=== PATIENT | female | born 1955 | race Caucasian/White ===

== ENCOUNTER 2020-07-05 09:11 | Day surgery (SDC) | payer MEDICARE, OTHER ==
[2020-07-03 09:22] VITALS: BMI 19.1
[~2020-07-05 09:11] MED LIST: ALPRAZolam 0.25 MG TAB PO PRN; ALPRAZolam 0.5 MG TAB PO PRN; ASPIRIN 325 MG TAB PO STA; ATORVASTATIN 80 MG TAB PO STA; HEPARIN SODIUM,PORCINE 10,000 UNIT in SODIUM CHLORIDE 0.9% 1,000 ML IRRIGATION PRN; HEPARIN SODIUM,PORCINE 2,500 UNIT in SODIUM CHLORIDE 0.9% 250 ML IRRIGATION PRN; NITROGLYCERIN SL TABS 0.4 MG TAB SUBLINGUAL PRN; SODIUM CHLORIDE 0.9% 1,000 ML in EMPTY BAG 1 BAG IV ONE
[2020-07-05] MEDS ORDERED: SODIUM CHLORIDE 0.9% 1,000 ML IV ONE (09:34)
[2020-07-05 09:50] VITALS: RESP 16; TEMP 98
[2020-07-05 10:42] LABS: Basophils # (A) 0.1 k/uL (0-0.2); Basophils % (A) 1 %; Eosinophils # (A) 0.3 k/uL (0-0.7); Eosinophils % (A) 2 %; HCT 45.9 % (34.0-46.0); HGB 15.9 gm/dL (11.4-16.0); Lymphocytes # (A) 1.8 k/uL (1.0-4.8); Lymphocytes % (A) 14 %; MCH 35.3 pg (25.0-35.0); MCHC 34.7 g/dL (31.0-37.0); MCV 101.6 fL (80.0-100.0); Mean Platelet Volume 8.1; Monocytes # (A) 0.8 k/uL (0-1.0); Monocytes % (A) 6 %; Neutrophils # (A) 10.4 k/uL (1.3-7.7); Neutrophils % (A) 77 %; Platelet Count 293 k/uL (150-450); RBC 4.52 m/uL (3.80-5.40); RDW 12.1 % (11.5-15.5); WBC 13.5 k/uL (3.8-10.6)
[2020-07-05 10:46] LABS: African American GFR (CKD) >90 (>60 ml/min/1.73 sqM); Anion Gap 11 mmol/L; Blood Urea Nitrogen 13 mg/dL (7-17); Calcium 9.4 mg/dL (8.4-10.2); Carbon Dioxide 22 mmol/L (22-30); Chloride 106 mmol/L (98-107); Glucose 104 mg/dL (74-99); Non-African American GFR(CKD) >90 (>60 ml/min/1.73 sqM); Sodium 139 mmol/L (137-145)
[2020-07-05 10:48] LABS: Potassium 4.7 mmol/L (3.5-5.1)
[2020-07-05] MEDS ORDERED: LIDOCAINE 1% INJ 10MG/ML (20 ML MDV) SQ ONE (11:25)
[2020-07-05] MEDS ORDERED: MIDAZOLAM 2 MG/2 ML VIAL IV ONE (11:25)
[2020-07-05] MEDS ORDERED: IOPAMIDOL-370 100ML BTL INJ ONE (11:41)
[2020-07-05] MEDS ORDERED: SODIUM CHLORIDE 0.9% 1,000 ML IV SCH (12:15)
--- NOTE | 2020-07-05 15:34 | CC ---
CARDIAC CATHETERIZATION REPORT DATE OF SERVICE: 07/05/2020. PROCEDURE: Left heart catheterization and coronary angiography and left ventriculography. PERFORMED BY: Dr. Marycruz Macias. Moderate conscious sedation time was 20 minutes. CLINICAL INFORMATION: Mrs. Maricel Keenan is a 64-year-old lady with a history of aortocoronary bypass surgery following a large inferior AL in 1996 with a PHILLIPS to LAD and vein graft to the RCA. This surgery was performed in [place]. She smokes and also has hypertension and hyperlipidemia. She has been having symptoms of exertional shortness of breath, chest discomfort and had a positive stress test with evidence of old AL with moderate area of partial reversibility. She was advised cardiac cath after due discussion. PROCEDURE NOTE: Under local anesthesia and strict aseptic precautions, a 6-[place] Island[place] introducer was placed in the right femoral artery. Using a standard JL4 catheter, I performed selective coronary angiography of the left system. Using a Tito catheter, I performed selective coronary angiography of the [place] RCA, vein graft to the RCA as well as the PHILLIPS injection. A pigtail catheter was used to check LV pressures and LV-gram was performed in 30-degree BRADLEY projection. Patient tolerated procedure well. The sheath was taken out and Angio-Seal device used to secure hemostasis and she was sent to the room in a stable condition. CARDIAC CATHETERIZATION FINDINGS: Left ventricular end-diastolic pressure was 9 mmHg without any gradient across aortic valve. CORONARY ANGIOGRAPHY FINDINGS: RIGHT CORONARY ARTERY: This is technically a dominant vessel, totally occluded without much antegrade flow. LEFT MAIN CORONARY ARTERY: Short patent vessel that bifurcates immediately into LAD and circumflex. Left main has no significant disease. LEFT ANTERIOR DESCENDING CORONARY ARTERY: This vessel is totally occluded with the proximal portion seen as a stump. LEFT POSTERIOR CIRCUMFLEX CORONARY ARTERY: Nondominant vessel gives off a first obtuse marginal and continues as a second obtuse marginal, has minor irregularities of 30% to 40%, no significant disease. SAPHENOUS VEIN GRAFT TO THE RCA: This graft is widely patent in its origin course insertion site and opacified RCA as well as the 2 distal branches of RCA are free of significant disease. LEFT INTERNAL MAMMARY ARTERY GRAFT TO LAD: This graft is widely patent, has no significant disease, opacifies the LAD as well as the diagonal branches that supply a sizable amount of myocardium. LEFT VENTRICULOGRAM: This was performed in 30-degree BRADLEY projection revealed left ventricle which is at upper limits of normal with akinesia of the inferobasal as well as mid inferior wall and ejection fraction of about 42%. There is no significant mitral regurgitation. FINAL IMPRESSION: This patient has ejection fraction of 42% with inferobasal akinesia and no mitral regurgitation, normal filling pressures, no gradient across aortic valve. Right- dominant system with total occlusion of RCA and LAD. The PHILLIPS to LAD is patent. Vein graft to the RCA is patent. Circumflex had 30% to 40% disease. RECOMMENDATIONS: Findings were discussed with the patient. I am going to recommend compliance with medications, medical therapy and risk factor modification. No intervention is necessary. The patient will be discharged later today and I will see her in the office in 48 hours. MMODL / IJN: [id number] /
[2020-07-05 16:30] VITALS: BP 128/60; PULSE 58
== END 2020-07-05 17:53 | disposition home or self-care (01) ==
LOC: CATHCVL 09:11
PROVIDERS: ATTEND Internal Medicine Interventional Cardiology
DX: I25.110 Atherosclerotic heart disease of native coronary artery with unstable angina pectoris (principal); I25.82 Chronic total occlusion of coronary artery; I10 Essential (primary) hypertension; E78.5 Hyperlipidemia, unspecified; E78.00 Pure hypercholesterolemia, unspecified; F17.200 Nicotine dependence, unspecified, uncomplicated; Z95.1 Presence of aortocoronary bypass graft; I25.2 Old myocardial infarction; Z79.82 Long term (current) use of aspirin; Z79.899 Other long term (current) drug therapy
CPT/HCPCS: 93459; 80048; 85025; C1760; C1894; C1769 ×2; J2250; J2001; Q9967

== ENCOUNTER 2020-10-21 15:59 | Inpatient (IN) | payer MEDICARE, OTHER ==
[2020-10-21] MEDS ORDERED: AMIODARONE 360 MG in DEXTROSE 5% IN WATER 200 ML IV ONE ×2 (16:12)
--- NOTE | 2020-10-21 16:31 | ED ---
Arrhythmia/Palpitations HPI - General Chief Complaint: Arrhythmia/Palpitations Stated Complaint: Fall, Chest Pain Time Seen by Provider: 10/21/20 16:12 Source: patient, EMS Mode of arrival: EMS - History of Present Illness Initial Comments: Maricel is a 65-year-old female with a history of coronary artery disease status post CABG with a cardiac catheterization earlier this year in which she had no intervention. The patient presents the ER today as a transfer [facility] outside hosp [facility]. Patient sought care at outside hospital for evaluation of pressure in her chest and palpitations. She was found to be tachycardic with a rate in the 140s believed to be V. tach and was treated with amiodarone. Her workup with outpatient Hospital also revealed significant hypomagnesemia and her magnesium was repleted. Patient was transferred to our hospital for further follow-up with cardiology. Upon arrival patient reports she is feeling well but did have a repeat episode of tachycardia in which she experienced pressure in her chest and palpitations. - Related Data Home Medications Medication Instructions Recorded Confirmed Aspirin 81 mg PO BID 07/03/20 07/05/20 Carvedilol [Coreg] 6.25 mg PO BID 07/03/20 07/05/20 Losartan Potassium [Cozaar] 50 mg PO HS 07/03/20 07/05/20 Multivitamins, Thera [Multivitamin 1 tab PO DAILY 07/03/20 07/05/20 (formulary)] Simvastatin [Zocor] 40 mg PO HS 07/03/20 07/05/20 Allergies Allergy/AdvReac Type Severity Reaction Status Date / Time No Known Allergies Allergy Verified 10/21/20 16:10 Review of Systems ROS Statement: Those systems with pertinent positive or pertinent negative responses have been documented in the HPI. ROS Other: All systems not noted in ROS Statement are negative. Past Medical History Past Medical History: Coronary Artery Disease (CAD), Myocardial Infarction (LA) Additional Past Medical History / Comment(s): EF 43%, hx kidney stones Last Myocardial Infarction Date:: 1986 History of Any Multi-Drug Resistant Organisms: None Reported Past Surgical History: Coronary Bypass/CABG, Heart Catheterization Additional Past Surgical History / Comment(s): CABG 1996,kidney stones Past Anesthesia/Blood Transfusion Reactions: No Reported Reaction Additional Past Anesthesia/Blood Transfusion Reaction / Comment(s): no hx blood transfusion Past Psychological History: No Psychological Hx Reported Smoking Status: Current every day smoker Past Alcohol Use History: Daily Past Drug Use History: None Reported - Past Family History Mother Family Medical History: No Reported History General Exam - General Exam Comments Initial Comments: Physical Exam GENERAL: Patient is well-developed Underweight Patient is nontoxic and well-hydrated and is in no distress. HENT: Normocephalic, Atraumatic. EYES: PERRL, EOMI PULMONARY: Unlabored respirations. No audible rales rhonchi or wheezing was noted. CARDIOVASCULAR: Bradycardic, regular Sternotomy scar ABDOMEN: Soft and nontender with normal bowel sounds. SKIN: Skin is clear with no lesions or rashes and otherwise unremarkable. : Deferred NEUROLOGIC: Patient is alert and oriented x3. Moving all extremities spontaneously MUSCULOSKELETAL: Normal extremities with adequate strength and full range of motion. No lower extremity swelling or edema. No calf tenderness. PSYCHIATRIC: Normal psychiatric evaluation. Course Vital Signs 10/21/20 16:03 Temperature 98.6 F Pulse Rate 58 L Respiratory 16 Rate Blood Pressure 126/72 O2 Sat by Pulse 96 Oximetry EKG Findings - EKG Comments: EKG Findings:: EKG was obtained at 1619, EKG with a rate of 53, rhythm is sinus bradycardia, normal axis, normal intervals, RI 124, QRS 100, QTC 437. There are no acute ST elevations, ST depressions are noted in V2 through V5 however this EKG was obtained within a minute of patient having resolution of tachycardic episode I suspect that ST depression in the due to demand ischemia. Medical Decision Making - Medical Decision Making Patient was seen and evaluated upon arrival to the emergency department, patient was in sinus bradycardia no acute distress Repeat labs were ordered Within 10 minutes of arrival patient had an episode of tachycardia that appeared to be narrow complex tachycardia on the quality assurance monitor body, she was treated with a repeat dose of amiodarone and amiodarone drip was initiated Patient tachycardia resolved after dose of amiodarone The EKG was obtained and is sinus bradycardia with some ST depressions consistent with demand ischemia These results were discussed with cardiology non profit financial controller Dr. Castro who agrees with plan for continued amiodarone and admission to the hospital Care was discussed with Dr. Barone who accepts the admission - Lab Data Result diagrams: 10/21/20 16:32 Lab Results 10/21/20 Range/Units 16:32 WBC 12.1 H (3.8-10.6) k/uL RBC 4.52 (3.80-5.40) m/uL Hgb 15.9 (11.4-16.0) gm/dL Hct 45.6 (34.0-46.0) % MCV 100.9 H (80.0-100.0) fL MCH 35.2 H (25.0-35.0) pg MCHC 34.9 (31.0-37.0) g/dL RDW 12.4 (11.5-15.5) % Plt Count 273 (150-450) k/uL MPV 7.7 Neutrophils % 63 % Lymphocytes % 25 % Monocytes % 7 % Eosinophils % 2 % Basophils % 1 % Neutrophils # 7.6 (1.3-7.7) k/uL Lymphocytes # 3.0 (1.0-4.8) k/uL Monocytes # 0.9 (0-1.0) k/uL Eosinophils # 0.3 (0-0.7) k/uL Basophils # 0.1 (0-0.2) k/uL Disposition Clinical Impression: Tachyarrhythmia, CAD (coronary artery disease) Disposition: ADMITTED IP TO THIS [facility] Condition: Serious Is patient prescribed a controlled substance at d/c from ED?: No Referrals: Adria Wright MD [Primary Care Provider] - 1-2 days
[2020-10-21 16:39] LABS: Basophils # (A) 0.1 k/uL (0-0.2); Basophils % (A) 1 %; Eosinophils # (A) 0.3 k/uL (0-0.7); Eosinophils % (A) 2 %; HCT 45.6 % (34.0-46.0); HGB 15.9 gm/dL (11.4-16.0); Lymphocytes % (A) 25 %; MCH 35.2 pg (25.0-35.0); MCHC 34.9 g/dL (31.0-37.0); MCV 100.9 fL (80.0-100.0); Mean Platelet Volume 7.7; Monocytes # (A) 0.9 k/uL (0-1.0); Monocytes % (A) 7 %; Neutrophils # (A) 7.6 k/uL (1.3-7.7); Neutrophils % (A) 63 %; Platelet Count 273 k/uL (150-450); RBC 4.52 m/uL (3.80-5.40); RDW 12.4 % (11.5-15.5); WBC 12.1 k/uL (3.8-10.6)
[2020-10-21] MEDS ORDERED: NALOXONE 0.4 MG/ML 1 ML VIAL IV PRN (16:41)
[2020-10-21 16:48] LABS: ALT 32 U/L (4-34); AST 49 U/L (14-36); African American GFR (CKD) >90 (>60 ml/min/1.73 sqM); Albumin 4.3 g/dL (3.5-5.0); Alkaline Phosphatase 73 U/L (38-126); Anion Gap 6 mmol/L; Blood Urea Nitrogen 11 mg/dL (7-17); Calcium 9.2 mg/dL (8.4-10.2); Carbon Dioxide 24 mmol/L (22-30); Chloride 108 mmol/L (98-107); Glucose 95 mg/dL (74-99); Magnesium 2.6 mg/dL (1.6-2.3); Non-African American GFR(CKD) >90 (>60 ml/min/1.73 sqM); Sodium 138 mmol/L (137-145); Total Bilirubin 1.5 mg/dL (0.2-1.3); Total Protein 7.4 g/dL (6.3-8.2)
[2020-10-21 16:50] LABS: Potassium 5.2 mmol/L (3.5-5.1)
[2020-10-21 17:08] LABS: INR 0.9 (<1.2); Prothrombin Time 10.1 sec (9.0-12.0)
[2020-10-21 17:15] LABS: Partial Thromboplastin Time 21.3 sec (22.0-30.0)
[2020-10-21] MEDS: DEXTROSE 5% IN WATER 100 ML with AMIODARONE 150 MG IV ONE ×2 (17:27→17:30)
[2020-10-21] MEDS: AMIODARONE 450 MG in DEXTROSE 5% IN WATER 250 ML IV SCH ×2 (22:28)
--- NOTE | 2020-10-21 22:37 | P.HPIM ---
History of Present Illness H&P Date: 10/21/20 Chief Complaint: Palpitations History of presenting complaint: This is a pleasant 65-year-old patient of Dr. Wright. Also follows with dewaterer operator Dr. BUSTER Macias. Patient had a coronary bypass in 1997. Patient will quite some time had been episodes of palpitations some chest pressure. Patient other intubated. Patient subsequently underwent a cardiac catheterization of [facility] Dr. BUSTER Macias. Findings: EF 42%. There was inferobasilar akinesia. Right dominant system with total occlusion of RCA and LAD. PHILLIPS to LAD is patent. Vein graft to RCA is patent. Circumflex had 30-40% disease. Patient has continued to have intermittent chest pressure or palpitations. Patient initially presented to [facility]. There is a question about patient being on V. tach. Was given IV amiodarone. The lesion was low that was in place. Patient had an episode of tachycardia in the ER. Admitted for the same. Patient also fell last week injuring her right ankle. X-rays were done at the [facility]. No fractures reported. Review of systems: GEN.: Tired EYES: None HEENT: None NECK: None RESPIRATORY: None CARDIOVASCULAR: As above GASTROINTESTINAL: None GENITOURINARY: None MUSCULOSKELETAL: None LYMPHATICS: None HEMATOLOGICAL: None PSYCHIATRY: None NEUROLOGICAL: None Past medical history to include: Coronary artery disease with prior bypass, kidney stones, CHF EF 43%, hypertension, hyperlipidemia Social history: Patient smokes a few cigarettes a day. Was up to half a pack a day for many years his age of 18. Patient drinks 2 Vodkas at night. Lives alone. Family history: Reviewed, noncontributory to presentation Physical examination: VITAL SIGNS: 97.9, 59, 18, 120/74, 100% room air GENERAL: BMI 19.5, laying in bed, comfortable. EYES: Pupils equal. Conjunctiva normal. HEENT: External appearance of nose and ears normal, oral cavity grossly normal. NECK: JVD not raised; masses not palpable. HEART: First and second heart sounds are normal; no edema. LUNGS: Respiratory rate normal; clear to auscultation. ABDOMEN: Soft, nontender, liver spleen not palpable, no masses palpable. PSYCH: Alert and oriented x3; mood and affect normal. NEUROLOGICAL: Cranial nerves grossly intact; no facial asymmetry, power and sensation grossly intact. MUSCULAR skeletal: Slight swelling around the right ankle. Fit fair range of motion LYMPHATICS: No lymph nodes palpable in the axilla and neck INVESTIGATIONS, reviewed in the clinical context: WBC 12.1 hemoglobin 15.9 platelets 273 potassium 5.2 creatinine 0.50 magnesium 2.6 TSH 1.9 Coronavirus [PCR] not detected EKG tracing personally reviewed by me-normal sinus rhythm without ST-T segment changes Assessment and plan: -Unstable angina in a patient with known coronary artery disease. She did have a cardiac catheterization in July of this year. She found to be patent. There was about 30-40% disease in the circumflex. Continue with aspirin, Coreg, Cozaar. Add Imdur. -Essential hypertension On Coreg and Cozaar -Hypercholesterolemia Continue Zocor -Arrhythmia reported. Exact type unknown. Questionable V. tach. Patient is on IV amiodarone. Consult cardiology. -Chronic nicotine dependence, cigarette smoker Nicotine patch Patient put on telemetry. Home medications resumed. Imdur is being added. Cardiology consulted. Care was discussed with the patient. Past Medical History Past Medical History: Coronary Artery Disease (CAD), Myocardial Infarction (CT) Additional Past Medical History / Comment(s): EF 43%, hx kidney stones Last Myocardial Infarction Date:: 1986 History of Any Multi-Drug Resistant Organisms: None Reported Past Surgical History: Coronary Bypass/CABG, Heart Catheterization Additional Past Surgical History / Comment(s): CABG 1996,kidney stones Past Anesthesia/Blood Transfusion Reactions: No Reported Reaction Additional Past Anesthesia/Blood Transfusion Reaction / Comment(s): no hx blood transfusion Past Psychological History: No Psychological Hx Reported Smoking Status: Light tobacco smoker Past Alcohol Use History: Daily Additional Past Alcohol Use History / Comment(s): started smoking at age 18 <1ppd Pt smokes 1-2 cigerettes a a day,drinks 2 vodka per day Past Drug Use History: None Reported - Past Family History Mother Family Medical History: No Reported History Medications and Allergies Home Medications Medication Instructions Recorded Confirmed Type Aspirin 81 mg PO BID 07/03/20 10/21/20 History Carvedilol [Coreg] 6.25 mg PO BID 07/03/20 10/21/20 History Losartan Potassium [Cozaar] 50 mg PO HS 07/03/20 10/21/20 History Simvastatin [Zocor] 40 mg PO HS 07/03/20 10/21/20 History Allergies Allergy/AdvReac Type Severity Reaction Status Date / Time No Known Allergies Allergy Verified 10/21/20 17:46 Physical Exam Vitals: Vital Signs Temp Pulse Pulse Resp BP BP Pulse Ox 10/21/20 21:49 97.9 F 59 L 18 120/74 100 10/21/20 20:54 52 L 16 128/76 95 10/21/20 17:31 64 18 128/76 98 10/21/20 16:03 98.6 F 58 L 16 126/72 96 Intake and Output 10/21/20 10/21/20 10/21/20 06:59 14:59 22:59 Intake Total 100 Balance 100 Intake: Oral 100 Other: Weight 49.895 kg Results CBC & Chem 7: 10/21/20 16:32 10/21/20 16:32 Labs: Abnormal Lab Results - Last 24 Hours (Table) 10/21/20 10/21/20 10/21/20 Range/Units 16:32 16:32 16:32 WBC 12.1 H (3.8-10.6) k/uL MCV 100.9 H (80.0-100.0) fL MCH 35.2 H (25.0-35.0) pg APTT 21.3 L (22.0-30.0) sec Potassium 5.2 H (3.5-5.1) mmol/L Chloride 108 H (98-107) mmol/L Creatinine 0.50 L (0.52-1.04) mg/dL Magnesium 2.6 H (1.6-2.3) mg/dL Total Bilirubin 1.5 H (0.2-1.3) mg/dL AST 49 H (14-36) U/L Thrombosis Risk Factor Assmnt - Choose All That Apply Any of the Below Risk Factors Present?: No Each Risk Factor Represents 2 Points: Age 61-74 years Other congenital or acquired thrombophilia - If yes, enter type in comment: No Thrombosis Risk Factor Assessment Total Risk Factor Score: 2 Thrombosis Risk Factor Assessment Level: Low Risk
[2020-10-21] MEDS: ASPIRIN 81 MG PO SCH (22:51)
[2020-10-21] MEDS: carvediloL 6.25 MG TAB PO SCH (22:51)
[2020-10-21] MEDS: LOSARTAN 50 MG TAB PO SCH (22:51)
[2020-10-21] MEDS: ATORVASTATIN 20 MG TAB PO SCH (22:51)
[2020-10-22] MEDS: carvediloL 6.25 MG TAB PO SCH ×2 (06:45→17:35)
[2020-10-22] MEDS: ASPIRIN 81 MG PO SCH ×2 (09:24→20:49)
[2020-10-22] MEDS: AMIODARONE 450 MG in DEXTROSE 5% IN WATER 250 ML IV SCH ×2 (12:40)
[2020-10-22] MEDS: AMIODARONE 200 MG TAB PO SCH (17:35)
--- NOTE | 2020-10-22 19:30 | P.CRDCN ---
History of Present Illness History of present illness: HISTORY OF PRESENTING ILLNESS This is a pleasant 65-year-old with past medical history significant for coronary artery disease status post CABG 1997, ischemic heart myopathy with ejection fraction 42%, hypertension, hyperlipidemia, tobacco abuse. She follows in the office with Dr Macias. She admits she has been feeling fairly well however over the last 3-4 days has been noting intermittent episodes of palpitations. She states she will feel her heart racing and feels somewhat lightheaded and usually last for 2-3 minutes. This has been predominantly over last few days. She then however was sitting in the chair talking with her friend when she began to feel palpitations and the next thing she remembers was waking up on the floor. Her friend states she slumped over in the chair and fell down to the ground. She believes she had her head. She then went to [facility]. She apparently was noted to be in ventricular tachycardia and was placed on amiodarone drip. She denies any further symptoms of palpitations since being on amiodarone. She was then transferred to [facility] for further treatment. She denies any chest pain, pressure, shortness breath. She did have recent heart catheterization from June 2020 which showed patent PHILLIPS to LAD, patent SVG to RCA, 100% [place] LAD and RCA stenosis with 30-40% circumflex disease. She also has a ejection of 42% by ventriculogram. EKG performed yesterday shows sinus bradycardia, normal axis, T-wave inversions in 2, 3, aVF. REVIEW OF SYSTEMS At the time of my exam: CONSTITUTIONAL: Denies fever or chills. CARDIOVASCULAR: Denies chest pain, shortness of breath, orthopnea, PND or palpitations. RESPIRATORY: Denies cough. GASTROINTESTINAL: Denies abdominal pain, diarrhea, constipation, nausea or vom iting. MUSCULOSKELETAL: Denies myalgias. NEUROLOGIC: Denies numbness, tingling or weakness. ENDOCRINE: Denies fatigue, weight change, polydipsia or polyurina. GENITOURINARY: Denies burning, hematuria or urgency with micturation. HEMATOLOGIC: Denies history of anemia or bleeding. PHYSICAL EXAMINATION Vital signs reviewed. CONSTITUTIONAL: No apparent distress. HEENT: Head is normocephalic. Pupils are equal, round. Sclerae anicteric. Mucous membranes of the mouth are moist. No JVD. No carotid bruit. CHEST EXAMINATION: Lungs are clear to auscultation. No chest wall tenderness is noted on palpation or with deep breathing. HEART EXAMINATION: Regular rate and rhythm. S1, S2 heard. No murmurs, gallops or rub. ABDOMEN: Soft, nontender. Positive bowel sounds. EXTREMITIES: 2+ peripheral pulses, no lower extremity edema and no calf tenderness. NEUROLOGIC EXAMINATION: Patient is awake, alert and oriented x3. ASSESSMENT 1. Syncope, likely related to ventricular tachycardia 2. Ventricular tachycardia noted at [facility], currently on amiodarone drip 3. Ischemic heart myopathy, last ejection fraction 42% 4. Chronic systolic heart failure 5. Tobacco abuse 6. Coronary artery disease status post CABG, patent PHILLIPS to LAD and SVG to RCA by recent heart catheterization 06/28/2020 PLAN Attempt to obtain records of ventricular tachycardia from [facility] however per documentation frequent episodes of ventricular tachycardia. This has been controlled on amiodarone drip. Ventricular tachycardia likely the result of prior scar with ischemic cardiomyopathy however also consideration of ischemia with EKG showing T-wave inversions concerning for ischemia. Patient however denies any angina-type symptoms. Check repeat 2-D echo. Further recommendations pending results of 2-D echo. If syncope related to ventricular tachycardia, patient would likely benefit from AICD for secondary prevention of sudden cardiac . Change to oral amiodarone. Continue beta lai, optimize heart failure regimen as able. Past Medical History Past Medical History: Coronary Artery Disease (CAD), Myocardial Infarction (VT) Additional Past Medical History / Comment(s): EF 43%, hx kidney stones Last Myocardial Infarction Date:: 1986 History of Any Multi-Drug Resistant Organisms: None Reported Past Surgical History: Coronary Bypass/CABG, Heart Catheterization Additional Past Surgical History / Comment(s): CABG 1996,kidney stones Past Anesthesia/Blood Transfusion Reactions: No Reported Reaction Additional Past Anesthesia/Blood Transfusion Reaction / Comment(s): no hx blood transfusion Past Psychological History: No Psychological Hx Reported Smoking Status: Light tobacco smoker Past Alcohol Use History: Daily Additional Past Alcohol Use History / Comment(s): started smoking at age 18 <1ppd Pt smokes 1-2 cigerettes a a day,drinks 2 vodka per day Past Drug Use History: None Reported - Past Family History Mother Family Medical History: No Reported History Medications and Allergies Home Medications Medication Instructions Recorded Confirmed Type Aspirin 81 mg PO BID 07/03/20 10/21/20 History Carvedilol [Coreg] 6.25 mg PO BID 07/03/20 10/21/20 History Losartan Potassium [Cozaar] 50 mg PO HS 07/03/20 10/21/20 History Simvastatin [Zocor] 40 mg PO HS 07/03/20 10/21/20 History Allergies Allergy/AdvReac Type Severity Reaction Status Date / Time No Known Allergies Allergy Verified 10/21/20 17:46 Physical Exam Vitals: Vital Signs Temp Pulse Pulse Resp BP BP Pulse Ox 10/22/20 16:00 53 L 18 103/65 98 10/22/20 12:00 62 18 129/79 98 10/22/20 08:00 98.0 F 53 L 18 90/59 97 10/22/20 04:00 54 L 16 97/59 99 10/22/20 02:00 59 L 18 10/21/20 21:49 97.9 F 59 L 18 120/74 100 10/21/20 20:54 52 L 16 128/76 95 Intake and Output 10/22/20 10/22/20 10/22/20 06:59 14:59 22:59 Intake Total 100 476.671 240 Balance 100 476.671 240 Intake: Intake, IV Titration 236.671 Amount Amiodarone 450 mg In 236.671 Dextrose 5% in Water 250 ml @ 0.5 MG/MIN 16.667 mls/hr IV .Q15H [facility] Rx#: [id number] Oral 100 240 240 Other: # Voids 1 Weight 47 kg Results 10/21/20 16:32 10/21/20 16:32 Current Medications Generic Name Dose Route Start Last Admin Trade Name Freq PRN Reason Stop Dose Admin Amiodarone HCl 400 mg 10/22/20 17:16 10/22/20 17:35 Amiodarone 200 Mg Tab PO 400 mg BID ANTHONY Administration Aspirin 81 mg 10/21/20 22:45 10/22/20 09:24 Aspirin 81 Mg PO 81 mg BID ANTHONY Administration Atorvastatin Calcium 20 mg 10/21/20 22:45 10/21/20 22:51 Atorvastatin 20 Mg Tab PO 20 mg HS [facility] Administration Carvedilol 6.25 mg 10/21/20 22:45 10/22/20 17:35 Carvedilol 6.25 Mg Tab PO 6.25 mg BID-W/MEALS ANTHONY Administration Losartan Potassium 50 mg 10/21/20 22:45 10/21/20 22:51 Losartan 50 Mg Tab PO 50 mg HS ANTHONY Administration Naloxone HCl 0.2 mg 10/21/20 16:41 Naloxone 0.4 Mg/Ml 1 Ml Vial IV Q2M PRN Opioid Reversal Intake and Output 10/22/20 10/22/20 10/22/20 06:59 14:59 22:59 Intake Total 100 476.671 240 Balance 100 476.671 240 Intake: Intake, IV Titration 236.671 Amount Amiodarone 450 mg In 236.671 Dextrose 5% in Water 250 ml @ 0.5 MG/MIN 16.667 mls/hr IV .Q15H ANTHONY Rx#: [id number] Oral 100 240 240 Other: # Voids 1 Weight 47 kg 10/21/20 16:32 10/21/20 16:32
--- NOTE | 2020-10-22 19:31 | P.PN ---
Progress Note - Text Progress Note Date: 10/22/20 Chief Complaint: Palpitations History of presenting complaint: This is a pleasant 65-year-old patient of Dr. Wright. Also follows with manual tester Dr. BUSTER Macias. Patient had a coronary bypass in 1997. Patient will quite some time had been episodes of palpitations some chest pressure. Patient other intubated. Patient subsequently underwent a cardiac catheterization of July Dr. BUSTER Macias. Findings: EF 42%. There was inferobasilar akinesia. Right dominant system with total occlusion of RCA and LAD. PHILLIPS to LAD is patent. Vein graft to RCA is patent. Circumflex had 30-40% disease. Patient has continued to have intermittent chest pressure or palpitations. Patient initially presented to [facility]. There is a question about patient being on V. tach. Was given IV amiodarone. The lesion was low that was in place. Patient had an episode of tachycardia in the ER. Admitted for the same. Patient also fell last week injuring her right ankle. X-rays were done at the [facility]. No fractures reported. Admitted with unstable angina. Arrhythmia type unknown. Patient did receive IV amiodarone. Today: Laying in bed. Comfortable. Tired. Review of systems: Was done for constitutional, cardiovascular, GI, pulmonary. relevant finding as above Active Medications Amiodarone HCl (Amiodarone 200 Mg Tab) 400 mg PO BID [facility] Last Admin: 10/22/20 17:35 Dose: 400 mg Documented by: Aspirin (Aspirin 81 Mg) 81 mg PO BID [facility] Last Admin: 10/22/20 09:24 Dose: 81 mg Documented by: Atorvastatin Calcium (Atorvastatin 20 Mg Tab) 20 mg PO [facility] Last Admin: 10/21/20 22:51 Dose: 20 mg Documented by: Carvedilol (Carvedilol 6.25 Mg Tab) 6.25 mg PO BID-W/MEALS [facility] Last Admin: 10/22/20 17:35 Dose: 6.25 mg Documented by: Isosorbide Mononitrate (Isosorbide Mononitrate Er 15 Mg Tab) 15 mg PO DAILY [facility] Losartan Potassium (Losartan 50 Mg Tab) 50 mg PO [facility] Last Admin: 10/21/20 22:51 Dose: 50 mg Documented by: Naloxone HCl (Naloxone 0.4 Mg/Ml 1 Ml Vial) 0.2 mg IV Q2M PRN PRN Reason: Opioid Reversal Past medical history to include: Coronary artery disease with prior bypass, kidney stones, CHF EF 43%, hypertension, hyperlipidemia Social history: Patient smokes a few cigarettes a day. Was up to half a pack a day for many years his age of 18. Patient drinks 2 Vodkas at night. Lives alone. Family history: Reviewed, noncontributory to presentation Physical examination: VITAL SIGNS: 98, 53, 18, 90/59, 97% room air GENERAL: BMI 19.5, laying in bed, comfortable. EYES: Pupils equal. Conjunctiva normal. NECK: JVD not raised; masses not palpable. HEART: First and second heart sounds are normal; no edema. LUNGS: Respiratory rate normal; clear to auscultation. ABDOMEN: Soft, nontender, liver spleen not palpable, no masses palpable. PSYCH: Alert and oriented x3; mood and affect normal. NEUROLOGICAL: Cranial nerves grossly intact; no facial asymmetry, power and sensation grossly intact. MUSCULAR skeletal: Slight swelling around the right ankle. Some decrease range of motion INVESTIGATIONS, reviewed in the clinical context: WBC 12.1 hemoglobin 15.9 platelets 273 potassium 5.2 creatinine 0.50 magnesium 2.6 TSH 1.9 Coronavirus [PCR] not detected EKG tracing personally reviewed by me-normal sinus rhythm without ST-T segment changes Assessment and plan: -Unstable angina in a patient with known coronary artery disease. She did have a cardiac catheterization in July of this year. Graft found to be patent. There was about 30-40% disease in the circumflex. Continue with aspirin, Coreg, Cozaar. Add Imdur. Cardiology consulted. -Essential hypertension On Coreg and Cozaar -Hypercholesterolemia Continue Zocor -Arrhythmia reported. Exact type unknown. Questionable V. tach. Received IV amiodarone. Consult cardiology. -Chronic nicotine dependence, cigarette smoker Nicotine patch Discussed with the patient earlier today. Continue current medication and treatment Plan.
[2020-10-22] MEDS: ISOSORBIDE MONONITRATE ER 15 MG TAB PO SCH (20:45)
[2020-10-22] MEDS: LOSARTAN 50 MG TAB PO SCH (20:49)
[2020-10-22] MEDS: ATORVASTATIN 20 MG TAB PO SCH (20:49)
[2020-10-22 21:36] LABS: African American GFR (CKD) >90 (>60 ml/min/1.73 sqM); Anion Gap 7 mmol/L; Blood Urea Nitrogen 18 mg/dL (7-17); Calcium 9.4 mg/dL (8.4-10.2); Carbon Dioxide 26 mmol/L (22-30); Chloride 105 mmol/L (98-107); Glucose 85 mg/dL (74-99); Non-African American GFR(CKD) >90 (>60 ml/min/1.73 sqM); Potassium 4.6 mmol/L (3.5-5.1); Sodium 138 mmol/L (137-145)
[2020-10-23] MEDS: ACETAMINOPHEN TAB 325 MG TAB PO PRN ×3 (04:29→12:15)
[2020-10-23] MEDS: carvediloL 6.25 MG TAB PO SCH ×2 (06:36→15:55)
[2020-10-23] MEDS: AMIODARONE 200 MG TAB PO SCH ×2 (08:15→20:53)
[2020-10-23] MEDS: ASPIRIN 81 MG PO SCH ×2 (08:15→20:54)
[2020-10-23] MEDS: ISOSORBIDE MONONITRATE ER 15 MG TAB PO SCH (08:15)
--- NOTE | 2020-10-23 13:31 | P.PN ---
Subjective HISTORY OF PRESENTING ILLNESS This is a pleasant 65-year-old with past medical history significant for coronary artery disease status post CABG 1997, ischemic cardiomyopathy with ejection fraction 42%, hypertension, hyperlipidemia and chronic tobacco abuse. She follows in the office with Dr Macias. She admits she has been feeling fairly well however over the last 3-4 days has been noting intermittent episodes of palpitations. She states she will feel her heart racing and feels somewhat lightheaded and usually last for 2-3 minutes. This has been predominantly over last few days. She then was sitting in the chair talking with her friend when she began to feel palpitations and the next thing she remembers was waking up on the floor. Her friend states she slumped over in the chair and fell down to the ground. She believes she hit her head. She then went to [facility]. She apparently was noted to be in ventricular tachycardia and was placed on amiodarone drip. She denies any further symptoms of palpitations since being on amiodarone. She was then transferred here for further treatment. She denies any chest pain, pressure, shortness breath. She did have recent heart catheterization from June 2020 which showed patent PHILLIPS to LAD, patent SVG to RCA, 100% [place] LAD and RCA stenosis with 30-40% circumflex disease. EKG performed yesterday shows sinus bradycardia, normal axis, T-wave inversions inferiorly. 10/23/2020 Pt is seen and examined resting comfortably laying flat in bed in no acute distress. She states last night she developed chest pain in the mid-sternal region associated with palpitations. Telemetry tracings were unremarkable. She was given imdur per the primary care team and developed a significant headache, whish is still ongoing at this time. Her chest pain has resolved. Blood pressure 129/69 heart rate 53 afebrile maintaining oxygen saturation on room air. GENERAL: Well-appearing, well-nourished and in no acute distress. NECK: Supple without JVD or thyromegaly. LUNGS: Breath sounds clear to auscultation bilaterally. Respiration equal and unlabored. No wheezes, rales or rhonchi. HEART: Regular rate and rhythm without murmurs, rubs or gallops. S1 and S2 heard. EXTREMITIES: Normal range of motion, no edema. No clubbing or cyanosis. Peripheral pulses intact. ASSESSMENT Syncope secondary to ventricular tachycardia Sustained ventricular tachycardia Ischemic cardiomyopathy Chronic systolic heart failure, clinically euvolemic Coronary artery disease status post bypass grafting, patent PHILLIPS to LAD and SVG to RCA by recent catheterization 06/29 Hypertension Dyslipidemia Chronic nicotine dependence PLAN Obtain 2-D echocardiogram and Doppler study to assess cardiac structure and function. Discontinue Imdur. Ongoing telemetry monitoring. She will likely require AICD implantation depending on echo findings. Nurse Practitioner note has been reviewed, I agree with a documented findings and plan of care. Patient was seen and examined. Objective - Vital Signs Vital signs: Vital Signs Temp 97.7 F 10/23/20 08:00 Pulse 53 L 10/23/20 08:00 Resp 18 10/23/20 08:00 BP 129/69 10/23/20 08:00 Pulse Ox 99 10/23/20 08:00 Intake & Output 10/22/20 10/23/20 10/23/20 18:59 06:59 18:59 Intake Total 716.671 240 Balance 716.671 240 Weight 45 kg Intake: Intake, IV Titration 236.671 Amount Amiodarone 450 mg In 236.671 Dextrose 5% in Water 250 ml @ 0.5 MG/MIN 16.667 mls/hr IV .Q15H ANTHONY Rx#: [id number] Oral 480 240 Other: # Voids 1 # Bowel Movements 0 - Labs CBC & Chem 7: 10/21/20 16:32 10/22/20 20:32 Labs: Abnormal Lab Results - Last 24 Hours (Table) 10/22/20 Range/Units 20:32 BUN 18 H (7-17) mg/dL
--- NOTE | 2020-10-23 14:46 | P.PN ---
Progress Note - Text Progress Note Date: 10/23/20 Chief Complaint: Palpitations History of presenting complaint: This is a pleasant 65-year-old patient of Dr. Wright. Also follows with furnace filler Dr. BUSTER Macias. Patient had a coronary bypass in 1997. Patient will quite some time had been episodes of palpitations some chest pressure. Patient other intubated. Patient subsequently underwent a cardiac catheterization of July Dr. BUSTER Macias. Findings: EF 42%. There was inferobasilar akinesia. Right dominant system with total occlusion of RCA and LAD. PHILLIPS to LAD is patent. Vein graft to RCA is patent. Circumflex had 30-40% disease. Patient has continued to have intermittent chest pressure or palpitations. Patient initially presented to [facility]. There is a question about patient being on V. tach. Was given IV amiodarone. The lesion was low that was in place. Patient had an episode of tachycardia in the ER. Admitted for the same. Patient also fell last week injuring her right ankle. X-rays were done at the [facility]. No fractures reported. Admitted with unstable angina. Ventricle or tachycardia. Patient did receive IV amiodarone. Today: No further arrhythmia. Patient developed a headache from Imdur. Discontinued. Laying in bed. Review of systems: Was done for constitutional, cardiovascular, GI, pulmonary. relevant finding as above Active Medications Acetaminophen (Acetaminophen Tab 325 Mg Tab) 650 mg PO Q4HR PRN PRN Reason: Fever and/ or Pain Last Admin: 10/23/20 12:15 Dose: 650 mg Documented by: Amiodarone HCl (Amiodarone 200 Mg Tab) 400 mg PO BID [facility] Last Admin: 10/23/20 08:15 Dose: 400 mg Documented by: Aspirin (Aspirin 81 Mg) 81 mg PO BID [facility] Last Admin: 10/23/20 08:15 Dose: 81 mg Documented by: Atorvastatin Calcium (Atorvastatin 20 Mg Tab) 20 mg PO [facility] Last Admin: 10/22/20 20:49 Dose: 20 mg Documented by: Carvedilol (Carvedilol 6.25 Mg Tab) 6.25 mg PO BID-W/MEALS [facility] Last Admin: 10/23/20 06:36 Dose: 6.25 mg Documented by: Losartan Potassium (Losartan 50 Mg Tab) 50 mg PO [facility] Last Admin: 10/22/20 20:49 Dose: 50 mg Documented by: Naloxone HCl (Naloxone 0.4 Mg/Ml 1 Ml Vial) 0.2 mg IV Q2M PRN PRN Reason: Opioid Reversal Past medical history to include: Coronary artery disease with prior bypass, kidney stones, CHF EF 43%, hypertension, hyperlipidemia Social history: Patient smokes a few cigarettes a day. Was up to half a pack a day for many yea rs his age of 18. Patient drinks 2 Vodkas at night. Lives alone. Family history: Reviewed, noncontributory to presentation Physical examination: VITAL SIGNS: 97.7, 53, 18, 129/69, 99% room air GENERAL:, laying in bed, comfortable. EYES: Pupils equal. Conjunctiva normal. NECK: JVD not raised; masses not palpable. HEART: First and second heart sounds are normal; no edema. LUNGS: Respiratory rate normal; clear to auscultation. ABDOMEN: Soft, nontender, liver spleen not palpable, no masses palpable. PSYCH: Alert and oriented x3; mood and affect normal. NEUROLOGICAL: Cranial nerves grossly intact; no facial asymmetry, power and sensation grossly intact. MUSCULAR skeletal: Slight swelling around the right ankle. Some decrease range of motion INVESTIGATIONS, reviewed in the clinical context: WBC 12.1 hemoglobin 15.9 platelets 273 potassium 5.2 creatinine 0.50 magnesium 2.6 TSH 1.9 Coronavirus [PCR] not detected EKG tracing personally reviewed by me-normal sinus rhythm without ST-T segment changes Assessment and plan: -Unstable angina in a patient with known coronary artery disease. She did have a cardiac catheterization in July of this year. Graft found to be patent. There was about 30-40% disease in the circumflex. Continue with aspirin, Coreg, Cozaar. Add Imdur. Cardiology consulted. -Nonobstructive, coronary artery disease On Coreg aspirin -Essential hypertension On Coreg and Cozaar -Hypercholesterolemia Continue Zocor -Ventricle or tachycardia Received IV amiodarone-changed to by mouth. Patient being assessed for AICD -Chronic nicotine dependence, cigarette smoker Nicotine patch Discussed with the patient. Patient being evaluated for AICD
[2020-10-23] MEDS: ATORVASTATIN 20 MG TAB PO SCH (20:53)
[2020-10-23] MEDS: LOSARTAN 50 MG TAB PO SCH (20:53)
[2020-10-24] MEDS: carvediloL 6.25 MG TAB PO SCH ×2 (07:09→17:30)
[2020-10-24] MEDS: ASPIRIN 81 MG PO SCH ×2 (08:22→20:39)
[2020-10-24] MEDS: AMIODARONE 200 MG TAB PO SCH ×2 (08:22→20:39)
--- NOTE | 2020-10-24 10:58 | P.PN ---
Subjective HISTORY OF PRESENTING ILLNESS This is a pleasant 65-year-old with past medical history significant for coronary artery disease status post CABG 1997, ischemic cardiomyopathy with ejection fraction 42%, hypertension, hyperlipidemia and chronic tobacco abuse. She follows in the office with Dr Macias. She admits she has been feeling fairly well however over the last 3-4 days has been noting intermittent episodes of palpitations. She states she will feel her heart racing and feels somewhat lightheaded and usually last for 2-3 minutes. This has been predominantly over last few days. She then was sitting in the chair talking with her friend when she began to feel palpitations and the next thing she remembers was waking up on the floor. Her friend states she slumped over in the chair and fell down to the ground. She believes she hit her head. She then went to [facility]. She apparently was noted to be in ventricular tachycardia and was placed on amiodarone drip. She denies any further symptoms of palpitations since being on amiodarone. She was then transferred here for further treatment. She denies any chest pain, pressure, shortness breath. She did have recent heart catheterization from June 2020 which showed patent PHILLIPS to LAD, patent SVG to RCA, 100% [place] LAD and RCA stenosis with 30-40% circumflex disease. EKG performed yesterday shows sinus bradycardia, normal axis, T-wave inversions inferiorly. 10/24/2020 Pt is seen and examined resting comfortably laying flat in bed in no acute distress. She denies chest pain, shortness of breath, dizziness or palpitations. Telemetry tracings unremarkable. Blood pressure 117/63 heart rate 57 afebrile maintaining oxygen saturation on room air. GENERAL: Well-appearing, well-nourished and in no acute distress. NECK: Supple without JVD or thyromegaly. LUNGS: Breath sounds clear to auscultation bilaterally. Respiration equal and unlabored. No wheezes, rales or rhonchi. HEART: Regular rate and rhythm without murmurs, rubs or gallops. S1 and S2 heard. EXTREMITIES: Normal range of motion, no edema. No clubbing or cyanosis. Peripheral pulses intact. ASSESSMENT Syncope secondary to ventricular tachycardia Sustained ventricular tachycardia Ischemic cardiomyopathy Chronic systolic heart failure, clinically euvolemic Coronary artery disease status post bypass grafting, patent PHILLIPS to LAD and SVG to RCA by recent catheterization 06/29 Hypertension Dyslipidemia Chronic nicotine dependence PLAN To prevent sudden cardiac AICD implantation scheduled for tomorrow with Dr. Guan. I have discussed the risks, benefits and alternative therapies for the above- mentioned procedure and for both sedation/analgesia as well as necessary blood product administration, if indicated, as they pertain to this patient. The patient has indicated understanding and acceptance of the risks and procedures discussed. Questions have been answered appropriately and she is agreeable to move forward with the above stated procedure. NPO after midnight tonight. Further recommendations to follow. Nurse Practitioner note has been reviewed, I agree with a documented findings and plan of care. Patient was seen and examined. Objective - Vital Signs Vital signs: Vital Signs Temp 97.5 F L 10/24/20 08:00 Pulse 57 L 10/24/20 08:00 Resp 16 10/24/20 08:00 BP 117/63 10/24/20 08:00 Pulse Ox 95 10/24/20 08:00 Intake & Output 10/23/20 10/24/20 10/24/20 18:59 06:59 18:59 Intake Total 720 240 Balance 720 240 Weight 45 kg 49.3 kg Intake: Oral 720 240 Other: Voiding Method Toilet Toilet # Bowel Movements 1 - Labs CBC & Chem 7: 10/21/20 16:32 10/22/20 20:32
--- NOTE | 2020-10-24 11:00 | ECHOF ---
Referral Reason:VT MEASUREMENTS -------- HEIGHT: 160.0 cm WEIGHT: 44.9 kg BP: RVIDd: 1.7 cm (< 3.3) IVSd: 1.1 cm (0.6 - 1.1) LVIDd: 5.4 cm (3.9 - 5.3) LVPWd: 1.1 cm (0.6 - 1.1) IVSs: 1.2 cm LVIDs: 4.3 cm LVPWs: 1.1 cm Ao Diam: 3.1 cm (2.0 - 3.7) AV Cusp: 1.8 cm (1.5 - 2.6) LA Diam: 2.6 cm (2.7 - 3.8) MV EXCURSION: 20.499 mm (> 18.000) MV EF SLOPE: 111 mm/s (70 - 150) EPSS: 1.0 cm MV E Marcio: 0.55 m/s MV DecT: 253 ms MV A Marcio: 0.73 m/s MV E/A Ratio: 0.75 RAP: 5.00 mmHg RVSP: 11.07 mmHg FINDINGS -------- This was a technically difficult study with suboptimal views. The left ventricular size is normal. Left ventricular wall thickness is normal. Overall left vent ricular systolic function is moderately impaired with, an EF between 35 - 40 %. Basal inferior LV w all motion is akinetic. Mid inferior LV wall motion is akinetic. Apical inferior LV wall motion is hypokinetic. The right ventricle is normal in size. The left atrial size is normal. The right atrial size is normal. xx ml of Lumason was utilized for enhancement of images. The aortic valve is trileaflet and appears structurally normal. The mitral valve is normal. There is trace mitral regurgitation. The tricuspid valve appears structurally normal. Trace tricuspid regurgitation present. Right dawn tricular systolic pressure is normal at < 35 mmHg. There is no pulmonic regurgitation present. The aortic root size is normal. Normal inferior vena cava with normal inspiratory collapse consistent with estimated right atrial pre ssure of 5 mmHg. There is no pericardial effusion. CONCLUSIONS -------- 1. The left ventricular size is normal. 2. Left ventricular wall thickness is normal. 3. Overall left ventricular systolic function is moderately impaired with, an EF between 35 - 40 %. 4. Basal inferior LV wall motion is akinetic. 5. Mid inferior LV wall motion is akinetic. 6. Apical inferior LV wall motion is hypokinetic. 7. There is trace mitral regurgitation. 8. Trace tricuspid regurgitation present. 9. There is no pericardial effusion. SIGNALING PROJECT ENGINEER: Zaynab Gale RDCS
[2020-10-24] MEDS: SODIUM CHLORIDE 0.9% 1,000 ML IV SCH ×4 (12:30→17:30)
--- NOTE | 2020-10-24 18:29 | P.PN ---
Progress Note - Text Progress Note Date: 10/24/20 Chief Complaint: Palpitations History of presenting complaint: This is a pleasant 65-year-old patient of Dr. Wright. Also follows with pharmaceutical worker Dr. BUSTER Macias. Patient had a coronary bypass in 1997. Patient will quite some time had been episodes of palpitations some chest pressure. Patient other intubated. Patient subsequently underwent a cardiac catheterization of July Dr. BUSTER Macias. Findings: EF 42%. There was inferobasilar akinesia. Right dominant system with total occlusion of RCA and LAD. PHILLIPS to LAD is patent. Vein graft to RCA is patent. Circumflex had 30-40% disease. Patient has continued to have intermittent chest pressure or palpitations. Patient initially presented to [facility]. There is a question about patient being on V. tach. Was given IV amiodarone. The lesion was low that was in place. Patient had an episode of tachycardia in the ER. Admitted for the same. Patient also fell last week injuring her right ankle. X-rays were done at the [facility]. No fractures reported. Admitted with unstable angina. Ventriclular tachycardia. Patient did receive IV amiodarone-changed to by mouth. Today: No further arrhythmia. Tolerating AICD. No chest pain or palpitation. Review of systems: Was done for constitutional, cardiovascular, GI, pulmonary. relevant finding as above Active Medications Acetaminophen (Acetaminophen Tab 325 Mg Tab) 650 mg PO Q4HR PRN PRN Reason: Fever and/ or Pain Last Admin: 10/23/20 12:15 Dose: 650 mg Documented by: Amiodarone HCl (Amiodarone 200 Mg Tab) 400 mg PO BID [facility] Last Admin: 10/24/20 08:22 Dose: 400 mg Documented by: Aspirin (Aspirin 81 Mg) 81 mg PO BID [facility] Last Admin: 10/24/20 08:22 Dose: 81 mg Documented by: Atorvastatin Calcium (Atorvastatin 20 Mg Tab) 20 mg PO HS [facility] Last Admin: 10/23/20 20:53 Dose: 20 mg Documented by: Carvedilol (Carvedilol 6.25 Mg Tab) 6.25 mg PO BID-W/MEALS [facility] Last Admin: 10/24/20 17:30 Dose: 6.25 mg Documented by: Sodium Chloride (Saline 0.9%) 1,000 mls @ 50 mls/hr IV .Q20H [facility] Last Admin: 10/24/20 12:30 Dose: 50 mls/hr Documented by: Sodium Chloride (Saline 0.9%) 1,000 mls @ 50 mls/hr IV .Q20H [facility] Last Admin: 10/24/20 13:04 Dose: Not Given Documented by: Sodium Chloride (Saline 0.9%) 1,000 mls @ 50 mls/hr IV .Q20H [facility] Last Admin: 10/24/20 17:30 Dose: Not Given Documented by: Sodium Chloride (Saline 0.9%) 1,000 mls @ 50 mls/hr IV .Q20H [facility] Last Admin: 10/24/20 17:30 Dose: 50 mls/hr Documented by: Cefazolin Sodium 2 gm/ Sodium (Chloride) 50 mls @ 100 mls/hr IVPB ONCE PRN PRN Reason: Pre-Op Stop: 10/25/20 23:00 Cefazolin Sodium 1 gm/ Sodium (Chloride) 250 mls @ 250 mls/hr IRRIGATION ONCE PRN PRN Reason: PRE-OP Stop: 10/25/20 23:00 Losartan Potassium (Losartan 50 Mg Tab) 50 mg PO HS [facility] Last Admin: 10/23/20 20:53 Dose: 50 mg Documented by: Naloxone HCl (Naloxone 0.4 Mg/Ml 1 Ml Vial) 0.2 mg IV Q2M PRN PRN Reason: Opioid Reversal Past medical history to include: Coronary artery disease with prior bypass, kidney stones, CHF EF 43%, hypertension, hyperlipidemia Social history: Patient smokes a few cigarettes a day. Was up to half a pack a day for many years his age of 18. Patient drinks 2 Vodkas at night. Lives alone. Family history: Reviewed, noncontributory to presentation Physical examination: VITAL SIGNS: 97.8, 55, 16, 121/68, 98% room air GENERAL:, laying in bed, comfortable. EYES: Pupils equal. Conjunctiva normal. NECK: JVD not raised; masses not palpable. HEART: First and second heart sounds are normal; no edema. LUNGS: Respiratory rate normal; clear to auscultation. ABDOMEN: Soft, nontender, liver spleen not palpable, no masses palpable. PSYCH: Alert and oriented x3; mood and affect normal. NEUROLOGICAL: Cranial nerves grossly intact; no facial asymmetry, power and sensation grossly intact. MUSCULAR skeletal: Slight swelling around the right ankle. Some decrease range of motion INVESTIGATIONS, reviewed in the clinical context: October 22: Potassium 4.6 creatinine 0.7 WBC 12.1 hemoglobin 15.9 platelets 273 potassium 5.2 creatinine 0.50 magnesium 2.6 TSH 1.9 Coronavirus [PCR] not detected EKG tracing personally reviewed by me-normal sinus rhythm without ST-T segment changes Assessment and plan: -Unstable angina in a patient with known coronary artery disease. She did have a cardiac catheterization in July of this year. Graft found to be patent. There was about 30-40% disease in the circumflex. Continue with aspirin, Coreg, Cozaar. Add Imdur-discontinued. Cardiology consulted. -Nonobstructive, coronary artery disease On Coreg aspirin -Essential hypertension On Coreg and Cozaar -Hypercholesterolemia Continue Zocor -Ventricular tachycardia Received IV amiodarone-changed to by mouth. Pending AICD -Chronic nicotine dependence, cigarette smoker Nicotine patch Continue current medications. Discussed with patient.
--- NOTE | 2020-10-24 19:50 | XR ---
EXAMINATION TYPE: XR chest 2V DATE OF EXAM: 10/24/2020 COMPARISON: NONE HISTORY: Syncope. TECHNIQUE: Frontal and lateral views of the chest are obtained. FINDINGS: There is no focal air space opacity, pleural effusion, or pneumothorax seen. The cardiac silhouette size is mildly enlarged. CABG noted. The osseous structures are intact. IMPRESSION: No acute cardiopulmonary process.
[2020-10-24] MEDS: LOSARTAN 50 MG TAB PO SCH (20:39)
[2020-10-24] MEDS: ATORVASTATIN 20 MG TAB PO SCH (20:39)
[2020-10-25] MEDS: carvediloL 6.25 MG TAB PO SCH ×2 (06:18→17:16)
[2020-10-25] MEDS: ASPIRIN 81 MG PO SCH ×2 (06:18→20:46)
[2020-10-25] MEDS: AMIODARONE 200 MG TAB PO SCH ×2 (06:18→20:48)
[2020-10-25 06:19] LABS: Glucose,Whole Blood 112 mg/dL (75-99)
[2020-10-25] MEDS: SODIUM CHLORIDE 0.9% 1,000 ML IV SCH ×4 (06:19→11:34)
[2020-10-25] MEDS ORDERED: ceFAZolin 1 GM in SODIUM CHLORIDE 0.9% 250 ML IRRIGATION PRN (07:00)
[2020-10-25 08:24] LABS: Basophils # (A) 0.1 k/uL (0-0.2); Basophils % (A) 1 %; Eosinophils # (A) 0.3 k/uL (0-0.7); Eosinophils % (A) 3 %; HCT 44.5 % (34.0-46.0); HGB 14.9 gm/dL (11.4-16.0); Lymphocytes % (A) 20 %; MCH 34.2 pg (25.0-35.0); MCHC 33.4 g/dL (31.0-37.0); MCV 102.3 fL (80.0-100.0); Macrocytosis Slight; Mean Platelet Volume 7.9; Monocytes # (A) 0.7 k/uL (0-1.0); Monocytes % (A) 7 %; Neutrophils # (A) 7.1 k/uL (1.3-7.7); Neutrophils % (A) 69 %; Platelet Count 276 k/uL (150-450); RBC 4.35 m/uL (3.80-5.40); RDW 12.4 % (11.5-15.5); WBC 10.4 k/uL (3.8-10.6)
[2020-10-25 08:33] LABS: African American GFR (CKD) >90 (>60 ml/min/1.73 sqM); Anion Gap 6 mmol/L; Blood Urea Nitrogen 15 mg/dL (7-17); Carbon Dioxide 23 mmol/L (22-30); Chloride 109 mmol/L (98-107); Glucose 97 mg/dL (74-99); Non-African American GFR(CKD) >90 (>60 ml/min/1.73 sqM); Potassium 4.6 mmol/L (3.5-5.1); Sodium 138 mmol/L (137-145)
[2020-10-25] MEDS ORDERED: LIDOCAINE 1% INJ 10MG/ML (20 ML MDV) ONE (08:53)
[2020-10-25] MEDS ORDERED: fentaNYL (PF) 50 MCG/ML 2 ML AMP ONE (08:53)
[2020-10-25] MEDS ORDERED: IOPAMIDOL-370 50ML BTL INJ ONE (09:00)
[2020-10-25] MEDS ORDERED: fentaNYL (PF) 50 MCG/ML 2 ML AMP IV ONE (09:05)
[2020-10-25] MEDS ORDERED: MIDAZOLAM 2 MG/2 ML VIAL IV ONE (09:05)
[2020-10-25] MEDS ORDERED: LIDOCAINE 1% INJ 10MG/ML (20 ML MDV) SQ ONE (09:10)
[2020-10-25] MEDS ORDERED: IV FLUID CONTINUATION 600 ML IV ONE (09:55)
--- NOTE | 2020-10-25 10:34 | P.PCN ---
Date of Procedure: 10/25/20 Preoperative Diagnosis: Ischemic cardiomyopathy, syncope with ventricular tachycardia Postoperative Diagnosis: The same Description of Procedure: HISTORY: This is a 65-year-old female with history of ischemic heart disease and ischemic cardiomyopathy and ejection fraction about 40-45% was admitted to the hospital with an episode of syncope and documented ventricular tachycardia. Patient has been treated with amiodarone. Patient has become bradycardic with heart rates in the 40s. Patient is advised to have dual-chamber AICD implantation. CONSENT:I have discussed the risks, benefits and alternative therapies for the above-mentioned procedure and for both sedation/analgesia as well as necessary blood product administration, if indicated, as they pertain to this patient. The patient has indicated understanding and acceptance of the risks and procedures discussed. PROCEDURE: Patient was brought to the lab in a fasting state. Patient was prepped and draped in the usual fashion. Patient was given IV sedation with fentanyl and Versed. The skin below the left clavicle was infiltrated with lidocaine. An incision was made parallel to deltopectoral groove was deepened until the pectoral fascia was exposed. A pocket was created by blunt dissection and cautery. Axillary venography was performed to delineate the course of the axillary vein. 2 sticks were performed into extrathoracic portion of the axillary vein and 2 sheaths were advanced over the guidewires and left in subclavian vein. Conscious Sedation: Versed 1mg Fentanyl 50 g Duration 69minutes LEADS: ATRIAL: This is manufactured by [employer]. The model number is 5076-45 and the serial number is [id number] VENTRICULAR: Manufactured by [employer]. Model number is [id number] and the serial number is [id number] THE DEVICE: This is manufactured by [employer]. The model number is [id number], and the serial number is [id number]. The ventricular lead is maneuvered l with help of a straight and curved stylets into the left ventricle apical region. Satisfactory position was obtained and threshold measurements were made. The atrial lead was then maneuvered into the right atrial appendage. And thresholds were obtained. THRESHOLDS: ATRIUM: The minimal pacing threshold was 0.5 at pulse width of 0.5 with impedance of 661 P-wave: 3.2 VENTRICLE: . The minimum patient threshold was 0.6 at a pulse width of 0.5. Impedance is 527 R-wave:, 10.3 The leads and pulse generator remained in the pocket after it was washed with antibiotics. Pocket was closed in the usual fashion. The fascia was closed with 2-0 Prolene ,the subcutaneous tissue was closed with 3-0 Prolene and the skin was closed with 4-0 Prolene. DFT TESTING: Not done today because of unavailability of anesthesia PROGRAMMING: Bradycardia programming: MODE: AAIR with mode switch to DDDR RATE: 60 to 130 OUTPUT: Atrium : 3.5 Ventricle: 3.5, no Tachycardia programming: #1. VF zone: Is programmed to a rate of 200. The therapies are programmed to 35 J 6. This will be adjusted after DFT testing. #2. The VT zone is programmed to a rate of 171. Therapies are programmed to burst pacing followed by ramp pacing followed by hard of motion 4 with 35 J. #3. The monitor zone is programmed to a rate of 150 FINAL IMPRESSION: 1. Axillary venography #2. Successful implantation of dual-chamber AICD COMPLICATIONS: None. PLAN: Patient will monitored on the telemetry unit. Prophylactic antibiotics will be continued. DFT testing in the morning
[2020-10-25] MEDS: HYDROcodone/APAP 5-325MG 1 EACH TAB PO PRN ×2 (11:57→20:47)
--- NOTE | 2020-10-25 18:14 | P.PN ---
Progress Note - Text Progress Note Date: 10/25/20 Chief Complaint: Palpitations History of presenting complaint: This is a pleasant 65-year-old patient of Dr. Wright. Also follows with canine enforcement officer Dr. BUSTER Macias. Patient had a coronary bypass in 1997. Patient will quite some time had been episodes of palpitations some chest pressure. Patient other intubated. Patient subsequently underwent a cardiac catheterization of July Dr. BUSTER Macias. Findings: EF 42%. There was inferobasilar akinesia. Right dominant system with total occlusion of RCA and LAD. PHILLIPS to LAD is patent. Vein graft to RCA is patent. Circumflex had 30-40% disease. Patient has continued to have intermittent chest pressure or palpitations. Patient initially presented to [facility]. There is a question about patient being on V. tach. Was given IV amiodarone. The lesion was low that was in place. Patient had an episode of tachycardia in the ER. Admitted for the same. Patient also fell last week injuring her right ankle. X-rays were done at the [facility]. No fractures reported. Admitted with unstable angina. Ventriclular tachycardia. Patient did receive IV amiodarone-changed to by mouth. Today: Dual-chamber AICD placed today. Postprocedure laying in bed. No new symptoms. Review of systems: Was done for constitutional, cardiovascular, GI, pulmonary. relevant finding as above Active Medications Acetaminophen (Acetaminophen Tab 325 Mg Tab) 650 mg PO Q4HR PRN PRN Reason: Fever and/ or Pain Last Admin: 10/23/20 12:15 Dose: 650 mg Documented by: Hydrocodone Bitart/Acetaminophen (Hydrocodone/Apap 5-325mg 1 Each Tab) 1 each PO Q4HR PRN PRN Reason: Pain Last Admin: 10/25/20 11:57 Dose: 1 each Documented by: Amiodarone HCl (Amiodarone 200 Mg Tab) 400 mg PO BID [facility] Last Admin: 10/25/20 06:18 Dose: 400 mg Documented by: Aspirin (Aspirin 81 Mg) 81 mg PO BID [facility] Last Admin: 10/25/20 06:18 Dose: 81 mg Documented by: Atorvastatin Calcium (Atorvastatin 20 Mg Tab) 20 mg PO HS [facility] Last Admin: 10/24/20 20:39 Dose: 20 mg Documented by: Carvedilol (Carvedilol 6.25 Mg Tab) 6.25 mg PO BID-W/MEALS [facility] Last Admin: 10/25/20 17:16 Dose: 6.25 mg Documented by: Sodium Chloride (Saline 0.9%) 1,000 mls @ 50 mls/hr IV .Q20H [facility] Last Admin: 10/25/20 06:19 Dose: 50 mls/hr Documented by: Sodium Chloride (Saline 0.9%) 1,000 mls @ 50 mls/hr IV .Q20H [facility] Last Admin: 10/25/20 07:50 Dose: Not Given Documented by: Sodium Chloride (Saline 0.9%) 1,000 mls @ 50 mls/hr IV .Q20H [facility] Last Admin: 10/25/20 11:34 Dose: Not Given Documented by: Sodium Chloride (Saline 0.9%) 1,000 mls @ 50 mls/hr IV .Q20H [facility] Last Admin: 10/25/20 11:34 Dose: Not Given Documented by: Cefazolin Sodium 1 gm/ Sodium (Chloride) 250 mls @ 250 mls/hr IRRIGATION ONCE PRN PRN Reason: PRE-OP Stop: 10/25/20 23:00 Losartan Potassium (Losartan 50 Mg Tab) 50 mg PO HS [facility] Last Admin: 10/24/20 20:39 Dose: 50 mg Documented by: Naloxone HCl (Naloxone 0.4 Mg/Ml 1 Ml Vial) 0.2 mg IV Q2M PRN PRN Reason: Opioid Reversal Sodium Chloride (Sodium Chloride 0.9% Flush 10 Ml Syringe) 10 ml IV Q12HR [facility] Past medical history to include: Coronary artery disease with prior bypass, kidney stones, CHF EF 43%, hypertension, hyperlipidemia Social history: Patient smokes a few cigarettes a day. Was up to half a pack a day for many years his age of 18. Patient drinks 2 Vodkas at night. Lives alone. Family history: Reviewed, noncontributory to presentation Physical examination: VITAL SIGNS: 98.2, 49, 16, 113/63, 99% room air GENERAL:, laying in bed, comfortable. EYES: Pupils equal. Conjunctiva normal. NECK: JVD not raised; masses not palpable. HEART: First and second heart sounds are normal; no edema. LUNGS: Respiratory rate normal; clear to auscultation. CHEST wall: Dressing over the AICD site. ABDOMEN: Soft, nontender, liver spleen not palpable, no masses palpable. PSYCH: Alert and oriented x3; mood and affect normal. MUSCULAR skeletal: Slight swelling around the right ankle. Some decrease range of motion INVESTIGATIONS, reviewed in the clinical context: October 25: WBC 10.4 hemoglobin 14.9 potassium 4.6 creatinine 0.65 October 22: Potassium 4.6 creatinine 0.7 WBC 12.1 hemoglobin 15.9 platelets 273 potassium 5.2 creatinine 0.50 magnesium 2.6 TSH 1.9 Coronavirus [PCR] not detected EKG tracing personally reviewed by me-normal sinus rhythm without ST-T segment changes Assessment and plan: -Possible Unstable angina in a patient with known coronary artery disease. She did have a cardiac catheterization in July of this year. Graft found to be patent. There was about 30-40% disease in the circumflex. Continue with aspirin, Coreg, Cozaar. Add Imdur-discontinued. Cardiology consulted. -Nonobstructive, coronary artery disease On Coreg aspirin -Essential hypertension On Coreg and Cozaar -Hypercholesterolemia Continue Zocor -Ventricular tachycardia Received IV amiodarone-changed to by mouth. AICD placed today. -Chronic nicotine dependence, cigarette smoker Nicotine patch Care was discussed with the patient. Questions answered. Hopefully home tomorrow.
[2020-10-25] MEDS: LOSARTAN 50 MG TAB PO SCH (20:46)
[2020-10-25] MEDS: ATORVASTATIN 20 MG TAB PO SCH (20:46)
[2020-10-26 00:38] VITALS: RESP 16
[2020-10-26] MEDS: carvediloL 6.25 MG TAB PO SCH ×2 (06:43→16:53)
[2020-10-26 08:15] LABS: Basophils % (A) 1 %; Eosinophils # (A) 0.3 k/uL (0-0.7); Eosinophils % (A) 4 %; HCT 45.3 % (34.0-46.0); HGB 15.4 gm/dL (11.4-16.0); Lymphocytes # (A) 1.7 k/uL (1.0-4.8); Lymphocytes % (A) 19 %; MCH 34.9 pg (25.0-35.0); MCHC 33.9 g/dL (31.0-37.0); MCV 102.7 fL (80.0-100.0); Macrocytosis Slight; Mean Platelet Volume 7.9; Monocytes # (A) 0.7 k/uL (0-1.0); Monocytes % (A) 8 %; Neutrophils # (A) 5.8 k/uL (1.3-7.7); Neutrophils % (A) 67 %; Platelet Count 245 k/uL (150-450); RBC 4.41 m/uL (3.80-5.40); RDW 12.4 % (11.5-15.5); WBC 8.6 k/uL (3.8-10.6)
--- NOTE | 2020-10-26 08:15 | XR ---
EXAMINATION TYPE: XR chest 2V DATE OF EXAM: 10/26/2020 COMPARISON: 10/24/2020 HISTORY: Syncope. TECHNIQUE: Frontal and lateral views of the chest are obtained. FINDINGS: Status post median sternotomy. Left infraclavicular generator device is new since prior ex am. Heart size is mildly enlarged. Mild atherosclerotic aorta. Vague patchy airspace opacity at the r ight medial lung base may represent atelectasis or developing pneumonia. Continued follow-up is recom mended. No pleural effusion or pneumothorax. IMPRESSION: 1. Status post median sternotomy for CABG. 2. Left infraclavicular generator device. 3. Vague patchy airspace opacity at the right medial lung base may represent atelectasis or developin g pneumonia. Continued follow-up is recommended.
[2020-10-26 08:27] LABS: African American GFR (CKD) >90 (>60 ml/min/1.73 sqM); Anion Gap 5 mmol/L; Blood Urea Nitrogen 14 mg/dL (7-17); Carbon Dioxide 29 mmol/L (22-30); Chloride 105 mmol/L (98-107); Glucose 87 mg/dL (74-99); Non-African American GFR(CKD) >90 (>60 ml/min/1.73 sqM); Potassium 4.8 mmol/L (3.5-5.1); Sodium 139 mmol/L (137-145)
[2020-10-26] MEDS: HYDROcodone/APAP 5-325MG 1 EACH TAB PO PRN ×3 (09:08→20:56)
[2020-10-26] MEDS: AMIODARONE 200 MG TAB PO SCH ×2 (09:08→20:55)
[2020-10-26] MEDS: ASPIRIN 81 MG PO SCH (09:08)
[2020-10-26] MEDS: SODIUM CHLORIDE 0.9% 1,000 ML IV SCH (09:09)
--- NOTE | 2020-10-26 12:15 | P.PN ---
Subjective HISTORY OF PRESENTING ILLNESS This is a pleasant 65-year-old with past medical history significant for coronary artery disease status post CABG 1997, ischemic cardiomyopathy with ejection fraction 42%, hypertension, hyperlipidemia and chronic tobacco abuse. She follows in the office with Dr Macias. She admits she has been feeling fairly well however over the last 3-4 days has been noting intermittent episodes of palpitations. She states she will feel her heart racing and feels somewhat lightheaded and usually last for 2-3 minutes. This has been predominantly over last few days. She then was sitting in the chair talking with her friend when she began to feel palpitations and the next thing she remembers was waking up on the floor. Her friend states she slumped over in the chair and fell down to the ground. She believes she hit her head. She then went to [facility]. She apparently was noted to be in ventricular tachycardia and was placed on amiodarone drip. She denies any further symptoms of palpitations since being on amiodarone. She was then transferred here for further treatment. She denies any chest pain, pressure, shortness breath. She did have recent heart catheterization from June 2020 which showed patent PHILLIPS to LAD, patent SVG to RCA, 100% [place] LAD and RCA stenosis with 30-40% circumflex disease. EKG performed yesterday shows sinus bradycardia, normal axis, T-wave inversions inferiorly. 10/26/2020 Pt seen and examined laying flat resting comfortably in bed in no acute distress. She underwent ICD implantation yesterday. Site is clean with dressing in place. Sling is on the left arm. [employer] rep at the bedside, device functioning normally. Blood pressure 114/64 heart rate 60 afebrile and maintaining oxygen saturation on room air. GENERAL: Well-appearing, well-nourished and in no acute distress. NECK: Supple without JVD or thyromegaly. LUNGS: Breath sounds clear to auscultation bilaterally. Respiration equal and unlabored. No wheezes, rales or rhonchi. HEART: Regular rate and rhythm without murmurs, rubs or gallops. S1 and S2 heard. EXTREMITIES: Normal range of motion, no edema. No clubbing or cyanosis. Peripheral pulses intact. ASSESSMENT Syncope secondary to ventricular tachycardia Sustained ventricular tachycardia Ischemic cardiomyopathy Chronic systolic heart failure, clinically euvolemic Coronary artery disease status post bypass grafting, patent PHILLIPS to LAD and SVG to RCA by recent catheterization 06/29 Hypertension Dyslipidemia Chronic nicotine dependence PLAN NPO after midnight tonight for DFT testing tomorrow. Decrease amiodarone to 200 mg BID and aspirin to daily dosing. Likely discharge home tomorrow after DFT testing. No VT noted on telemetry tracings. Nurse Practitioner note has been reviewed, I agree with a documented findings and plan of care. Patient was seen and examined. Objective - Vital Signs Vital signs: Vital Signs Temp 98.1 F 10/26/20 08:00 Pulse 70 10/26/20 11:41 Resp 16 10/26/20 11:41 BP 136/76 10/26/20 11:41 Pulse Ox 100 10/26/20 11:41 Intake & Output 10/25/20 10/26/20 10/26/20 18:59 06:59 18:59 Intake Total 1200 600 360 Output Total 300 Balance 1200 600 60 Intake: IV 600 ceFAZolin 2 gm In Sodium 400 Chloride 0.9% 50 ml @ 100 mls/hr IVPB ONCE PRN Rx# :[id number] ceFAZolin 2 gm In Sodium 50 Chloride 0.9% 50 ml @ 100 mls/hr IVPB Q6H [facility] Rx#: [id number] Oral 600 600 360 Output: Urine 300 Other: Voiding Method Toilet # Voids 1 2 - Labs CBC & Chem 7: 10/26/20 07:40 10/26/20 07:40 Labs: Abnormal Lab Results - Last 24 Hours (Table) 10/26/20 Range/Units 07:40 MCV 102.7 H (80.0-100.0) fL
--- NOTE | 2020-10-26 12:29 | P.PN ---
Progress Note - Text Progress Note Date: 10/26/20 Chief Complaint: Palpitations History of presenting complaint: This is a pleasant 65-year-old patient of Dr. Wright. Also follows with brake press operator Dr. BUSTER Macias. Patient had a coronary bypass in 1997. Patient will quite some time had been episodes of palpitations some chest pressure. Patient other intubated. Patient subsequently underwent a cardiac catheterization of July Dr. BUSTER Macias. Findings: EF 42%. There was inferobasilar akinesia. Right dominant system with total occlusion of RCA and LAD. PHILLIPS to LAD is patent. Vein graft to RCA is patent. Circumflex had 30-40% disease. Patient has continued to have intermittent chest pressure or palpitations. Patient initially presented to [facility]. There is a question about patient being on V. tach. Was given IV amiodarone. The lesion was low that was in place. Patient had an episode of tachycardia in the ER. Admitted for the same. Patient also fell last week injuring her right ankle. X-rays were done at the [facility]. No fractures reported. Admitted with unstable angina. Ventriclular tachycardia. Patient did receive IV amiodarone-changed to by mouth. October 25: Dual-chamber AICD placed Today: Sitting at edge of bed. Comfortable. Breathing stable. No dizziness, lightheadedness. Left arm in a sling. Awaiting defibrillation threshold testing.. Review of systems: Was done for constitutional, cardiovascular, GI, pulmonary. relevant finding as above Active Medications Acetaminophen (Acetaminophen Tab 325 Mg Tab) 650 mg PO Q4HR PRN PRN Reason: Fever and/ or Pain Last Admin: 10/23/20 12:15 Dose: 650 mg Documented by: Hydrocodone Bitart/Acetaminophen (Hydrocodone/Apap 5-325mg 1 Each Tab) 1 each PO Q4HR PRN PRN Reason: Pain Last Admin: 10/26/20 09:08 Dose: 1 each Documented by: Amiodarone HCl (Amiodarone 200 Mg Tab) 200 mg PO BID [facility] Aspirin (Aspirin 81 Mg) 81 mg PO DAILY [facility] Atorvastatin Calcium (Atorvastatin 20 Mg Tab) 20 mg PO HS [facility] Last Admin: 10/25/20 20:46 Dose: 20 mg Documented by: Carvedilol (Carvedilol 6.25 Mg Tab) 6.25 mg PO BID-W/MEALS [facility] Last Admin: 10/26/20 06:43 Dose: 6.25 mg Documented by: Sodium Chloride (Saline 0.9%) 1,000 mls @ 50 mls/hr IV .Q20H [facility] Last Admin: 10/26/20 09:09 Dose: Not Given Documented by: Losartan Potassium (Losartan 50 Mg Tab) 50 mg PO HS [facility] Last Admin: 10/25/20 20:46 Dose: 50 mg Documented by: Naloxone HCl (Naloxone 0.4 Mg/Ml 1 Ml Vial) 0.2 mg IV Q2M PRN PRN Reason: Opioid Reversal Sodium Chloride (Sodium Chloride 0.9% Flush 10 Ml Syringe) 10 ml IV Q12HR [facility] Last Admin: 10/26/20 09:09 Dose: 10 ml Documented by: Past medical history to include: Coronary artery disease with prior bypass, kidney stones, CHF EF 43%, hypertension, hyperlipidemia Social history: Patient smokes a few cigarettes a day. Was up to half a pack a day for many years his age of 18. Patient drinks 2 Vodkas at night. Lives alone. Family history: Reviewed, noncontributory to presentation Physical examination: VITAL SIGNS: 98.1, 70, 16, 136/76, 100% on room air GENERAL:, Sitting at the edge of the bed,, comfortable. Left arm in a sling EYES: Pupils equal. Conjunctiva normal. NECK: JVD not raised; masses not palpable. HEART: First and second heart sounds are normal; no edema. LUNGS: Respiratory rate normal; clear to auscultation. CHEST wall: Dressing over the AICD site. ABDOMEN: Soft, nontender, liver spleen not palpable, no masses palpable. PSYCH: Alert and oriented x3; mood and affect normal. MUSCULAR skeletal: Slight swelling around the right ankle. Some decrease range of motion INVESTIGATIONS, reviewed in the clinical context: October 26: WBC 8.6 hemoglobin 15.4 potassium 4.8 creatinine 0.61 October 25: WBC 10.4 hemoglobin 14.9 potassium 4.6 creatinine 0.65 October 22: Potassium 4.6 creatinine 0.7 WBC 12.1 hemoglobin 15.9 platelets 273 potassium 5.2 creatinine 0.50 magnesium 2.6 TSH 1.9 Coronavirus [PCR] not detected EKG tracing personally reviewed by me-normal sinus rhythm without ST-T segment changes Assessment and plan: -Possible Unstable angina in a patient with known coronary artery disease. She did have a cardiac catheterization in July of this year. Graft found to be patent. There was about 30-40% disease in the circumflex. Continue with aspirin, Coreg, Cozaar. Add Imdur-discontinued. Cardiology consulted. -Nonobstructive, coronary artery disease On Coreg aspirin -Essential hypertension On Coreg and Cozaar -Hypercholesterolemia Continue Zocor -Ventricular tachycardia Received IV amiodarone-changed to by mouth. Dual-chamber AICD placed -Chronic nicotine dependence, cigarette smoker Nicotine patch Care was discussed with the patient. DFT pending
[2020-10-26 15:32] VITALS: BMI 19.4
[2020-10-26] MEDS: ATORVASTATIN 20 MG TAB PO SCH (20:55)
[2020-10-26] MEDS: LOSARTAN 50 MG TAB PO SCH (20:56)
[2020-10-27] MEDS: SODIUM CHLORIDE 0.9% 1,000 ML IV SCH (05:39)
[2020-10-27] MEDS: carvediloL 6.25 MG TAB PO SCH (06:33)
[2020-10-27] MEDS: AMIODARONE 200 MG TAB PO SCH (08:33)
[2020-10-27 08:37] VITALS: PULSE 60; TEMP 98.6
[2020-10-27] MEDS ORDERED: ASPIRIN 81 MG PO SCH (09:00)
[2020-10-27 12:11] VITALS: BP 115/64
[2020-10-27] MEDS ORDERED: SODIUM CHLORIDE 0.9% 1,000 ML IV ONE (12:40)
[2020-10-27] MEDS ORDERED: PROPOFOL 10 MG/ML 20 ML VIAL IV ONE (13:01)
[2020-10-27] MEDS ORDERED: LIDOCAINE 1% INJ 10MG/ML (20 ML MDV) ONE (13:01)
[2020-10-27] MEDS ORDERED: SODIUM CHLORIDE 0.9% 1,000 ML IV SCH (13:15)
--- NOTE | 2020-10-27 13:17 | P.PCN ---
Date of Procedure: 10/27/20 Preoperative Diagnosis: This is a 65-year-old female with history of syncope, ischemic cardiomyopathy and documented V. tach who had AICD implantation about 48 hours ago. She is brought in for DFT testing. Procedure: Patient was brought to the lab in a fasting state. She was prepped and draped in the usual fashion. Patient was provided IV anesthesia by department of anesthesia. Ventricular fibrillation was induced with T shock. This was appropriately detected with a 3 dropouts PDA, single shock of 50 J converted patient back to sinus rhythm. No immediate complications. Patient tolerated the procedure well. Final impression: Successful DFT. Final programming: The VF zone is programmed at a rate of 188 bpm.. The therapies are programmed to 25 J followed by 355. The rest of the therapies are as programmed. Previously. Patient is being transferred to telemetry unit. Plan: Patient could be discharged home later today. Follow-up with Dr. BUSTER Macias
--- NOTE | 2020-10-27 17:57 | P.DS ---
Providers Date of admission: 10/21/20 16:41 Expected date of discharge: 10/27/20 Attending physician: Trent Barone Consults: 10/21/20 16:41 Consult Physician Stat Consulting Provider: Niko Castro Consult Reason/Comments: arrhythmia Do you want consulting provider notified?: Already Contacted [facility] Course: Chief Complaint: Palpitations History of presenting complaint: This is a pleasant 65-year-old patient of Dr. Wright. Also follows with graphic arts instructor Dr. BUSTER Macias. Patient had a coronary bypass in 1997. Patient will quite some time had been episodes of palpitations some chest pressure. Patient other intubated. Patient subsequently underwent a cardiac catheterization of July Dr. BUSTER Macias. Findings: EF 42%. There was inferobasilar akinesia. Right dominant system with total occlusion of RCA and LAD. PHILLIPS to LAD is patent. Vein graft to RCA is patent. Circumflex had 30-40% disease. Patient has continued to have intermittent chest pressure or palpitations. Patient initially presented to [facility]. There is a question about patient being on V. tach. Was given IV amiodarone. The lesion was low that was in place. Patient had an episode of tachycardia in the ER. Admitted for the same. Patient also fell last week injuring her right ankle. X-rays we re done at the [facility]. No fractures reported. Admitted with unstable angina. Ventriclular tachycardia. Patient did receive IV amiodarone-changed to by mouth. October 25: Dual-chamber AICD placed Today: Today patient was taken down for the DFT testing and programming. Patient tolerated the procedure well. Cleared by cardiology to go home. Otherwise feeling well. Consultation: Cardiology associates Past medical history to include: Coronary artery disease with prior bypass, kidney stones, CHF EF 43%, hypertension, hyperlipidemia Social history: Patient smokes a few cigarettes a day. Was up to half a pack a day for many years his age of 18. Patient drinks 2 Vodkas at night. Lives alone. Family history: Reviewed, noncontributory to presentation Physical examination: VITAL SIGNS: 98.6, 60, 16, 103/58, 96% room air GENERAL:, Comfortable. Left arm in a sling EYES: Pupils equal. Conjunctiva normal. NECK: JVD not raised; masses not palpable. HEART: First and second heart sounds are normal; no edema. LUNGS: Respiratory rate normal; clear to auscultation. CHEST wall: Dressing over the AICD site. ABDOMEN: Soft, nontender, liver spleen not palpable, no masses palpable. PSYCH: Alert and oriented x3; mood and affect normal. MUSCULAR skeletal: Slight swelling around the right ankle. Some decrease range of motion INVESTIGATIONS, reviewed in the clinical context: October 26: WBC 8.6 hemoglobin 15.4 potassium 4.8 creatinine 0.61 October 25: WBC 10.4 hemoglobin 14.9 potassium 4.6 creatinine 0.65 October 22: Potassium 4.6 creatinine 0.7 WBC 12.1 hemoglobin 15.9 platelets 273 potassium 5.2 creatinine 0.50 magnesium 2.6 TSH 1.9 Coronavirus [PCR] not detected EKG tracing personally reviewed by me-normal sinus rhythm without ST-T segment changes Assessment and plan: -Sustained Ventricular tachycardia, leading to syncope Received IV amiodarone-changed to by mouth. Dual-chamber AICD placed -Nonobstructive, coronary artery disease On Coreg aspirin -Essential hypertension On Coreg and Cozaar -Hypercholesterolemia Continue Zocor -Chronic nicotine dependence, cigarette smoker Nicotine patch Disposition: Home Plan - Discharge Summary Discharge Rx Participant: No New Discharge Prescriptions: New Acetaminophen Tab [Tylenol] 650 mg PO Q4HR PRN tab PRN Reason: Fever And/ Or Pain Continue Losartan Potassium [Cozaar] 50 mg PO HS Simvastatin [Zocor] 40 mg PO HS Carvedilol [Coreg] 6.25 mg PO BID Changed Aspirin 81 mg PO DAILY #0 Discharge Medication List Carvedilol [Coreg] 6.25 mg PO BID 07/03/20 [History] Losartan Potassium [Cozaar] 50 mg PO HS 07/03/20 [History] Simvastatin [Zocor] 40 mg PO HS 07/03/20 [History] Acetaminophen Tab [Tylenol] 650 mg PO Q4HR PRN tab 10/27/20 [Rx] Aspirin 81 mg PO DAILY #0 10/27/20 [Rx] Follow up Appointment(s)/Referral(s): Reilly Macias MD [STAFF PHYSICIAN] - 1 Week (office will call you with an appt time.) Adria Wright MD [Primary Care Provider] - 1-2 days (Please call office on [place] to schedule an appointment) Patient Instructions/Handouts: Pacemaker (DC) Discharge Disposition: HOME SELF-CARE
== END 2020-10-27 15:43 | disposition home or self-care (01) | DRG 227 ==
LOC: EC 15:59 → 3SCARD 16:41
PROVIDERS: ADMIT Hospitalist; ATTEND Hospitalist
PROC: 0JH608Z Insertion of Defibrillator Generator into Chest Subcutaneous Tissue and Fascia, Open Approach (ICD-10-PCS; principal; 2020-10-25 10:00)
PROC: 02HK3KZ Insertion of Defibrillator Lead into Right Ventricle, Percutaneous Approach (ICD-10-PCS; principal; 2020-10-25 10:00)
PROC: 02H63KZ Insertion of Defibrillator Lead into Right Atrium, Percutaneous Approach (ICD-10-PCS; principal; 2020-10-25 10:00)
PROC: 4B02XTZ Measurement of Cardiac Defibrillator, External Approach (ICD-10-PCS; 2020-10-27)
DX: I47.2 Ventricular tachycardia (principal); I50.22 Chronic systolic (congestive) heart failure; I25.110 Atherosclerotic heart disease of native coronary artery with unstable angina pectoris; I25.5 Ischemic cardiomyopathy; I25.2 Old myocardial infarction; W19.XXXA Unspecified fall, initial encounter; E78.5 Hyperlipidemia, unspecified; E78.00 Pure hypercholesterolemia, unspecified; F17.210 Nicotine dependence, cigarettes, uncomplicated; I11.0 Hypertensive heart disease with heart failure; I25.82 Chronic total occlusion of coronary artery; Z79.82 Long term (current) use of aspirin; Z79.899 Other long term (current) drug therapy; Z87.442 Personal history of urinary calculi; Z95.1 Presence of aortocoronary bypass graft; Z60.2 Problems related to living alone
CPT/HCPCS: 33249; 36415; 71046; 80048; 80053; 83735; 84443; 84484; 85025; 85610; 85730; 87635; 93005; 93306; 93642; 96374; 99285

== ENCOUNTER → 2024-01-09 | Outpatient (CLI) | payer MEDICARE, OTHER ==
--- NOTE | 2024-01-09 15:08 | US ---
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
== END | disposition home or self-care (01) ==
LOC: RADUSWWP 14:11
PROVIDERS: ATTEND Internal Medicine Interventional Cardiology
DX: G62.9 Polyneuropathy, unspecified (principal); I25.5 Ischemic cardiomyopathy; I73.9 Peripheral vascular disease, unspecified; E78.5 Hyperlipidemia, unspecified
CPT/HCPCS: 93922